=== PATIENT | female | born 1960 | race Caucasian/White ===

== ENCOUNTER 2024-08-21 15:12 | Outpatient (CLI) | payer MEDICARE, SELFPAY ==
--- NOTE | ~2024-08-21 | XR_ITS ---
EXAM/PROCEDURE: XR abdomen/kub 1V - 08/21/2024 15:30 CDT HISTORY: 64 years old Female with FLIP KIDNEY STONES. F/U COMPARISON: None available. TECHNIQUE: AP view(s) of the abdomen. FINDINGS: The bowel gas pattern is normal. There is no evidence for obstruction. Multiple radiopaque renal calc josie are seen in the left kidney. Probable calculi in the left kidney. No free intraperitoneal air is identified on this supine radiograph. The visualized soft tissue shadows are unremarkable. No gross bony abnormalities are seen. Dextroscoliosis. Visualized portions of lung bases are clear. IMPRESSION: Multiple radiopaque renal calculi are seen in the left kidney. Reviewed, dictated and finalized at location A.
--- OUTSIDE RECORDS SUMMARY | 2024-08-21 15:26 | XMS_ITS | Clinical Summary ---
Author Organization [facility] Address [address] [place] [address] Care Team Providers Care Carpenter Assembler Name Role Phone Megan Deras PIPE INSTALLER-POT LINING SUPERVISOR Primary Care Provider [phone]- [phone] Source Comments [facility],non-owned Affiliates and Associated Physician Practices is amultiple site organization consisting of ambulatory clinics and hospital sitesin [place], [place], [place] and [place]. This disclosure is being madepursuant to the Care Everywhere program and may not contain all information available regarding this patient. Last updated [email or web address] Social History Tobacco Use Types Packs/Day Years Used Date Smoking Tobacco: Never Assessed Comments Unknown Sex and Gender Information Value Date Recorded Sex Assigned at Not on file Legal Sex Female 11:09 AM CDT Gender Identity Not on file Sexual Orientation Not on file Plan of Treatment Health Maintenance Due Date Last Done Comments COLOGUARD (AGES 45-75) - COL ON CA SCREENING 1961 COLON MONITORING 1961 COLONOSCOPY - COLON CA SCREENING 1961 CT COLONOGRAPHY - COLON CA SCREENING 1961 Colorectal Cancer Screening 1961 FIT - COLON CA SCREENING 1961 FLEX SIG - COLON CA SCREENING 1961 LIPID TESTING 1961 MAMMOGRAM 1961 MEDICARE AWV 12 MONTHS 1961 HIV SCREENING 01/27/1976 HEPATITIS C SCREENING 01/22/1979 DTAP/TDAP/TD VACCINES (1 - Tdap) 01/27/1980 PAP SMEAR 1982 PNEUMOCOCCAL VACCINE 50+ (1 of 1 - PCV) 2011 ZOSTER VACCINE (1 of 2) 2011 COVID-19 VACCINE (1 - 2023-2 5 season) 2023 DEPRESSION SCREENING 02/14/2024 INFLUENZA VACCINE (#1) 2024 Respiratory Syncytial Virus (RSV) Vaccine Pt: or over 60 yrs (1 - 1-dose 75+ series) 01/27/2036 HEPATITIS B VACCINE Aged Out No longe r eligible based on patient's age to complete this topic HIB VACCINE Aged Out No longer eligi ble based on patient's age to complete this topic HPV VACCINE Aged Out No longer eligi ble based on patient's age to complete this topic MENINGOCOCCAL (Group B) VACC INE SHARED DECISION-MAKING Aged Out No longer eligibl e based on patient's age to complete this topic MENINGOCOCCAL GROUPS A/C/Y/W VACCINE Aged Out No longer eligible b ased on patient's age to complete this topic Insurance MEDICARE MEDICAID - OUT OF [facility] MEDIC[facility] Care Teams Carpenter Assembler Relationship Specialty Start Date End Date Megan Deras APRN-CNP PCP - General 06/01/18
--- OUTSIDE RECORDS SUMMARY | 2024-08-21 15:26 | XMS_ITS | Referral Summary ---
Author Organization [facility] Address [address] [place] [id number] Care Team Providers Care Telegraph Repeater Mechanic Name Role Phone Keily Luis NP Primary Care Provide r Allergies No known active allergies Medications ibuprofen (ADVIL) 100 mg tablet take 2 tablet by oral route every 4 - 6 hours as needed with food 0 0 6 Active Additional Information Patient taking differently:100 mgAs needed, Reported on 09/14/2022 multivitamin tabletIndicatio ns:Vitamin Deficiency Prevention Active venlafaxine XR (EFFEXOR-XR) 37.5 mg 24 hr capsule Take 1 capsule (37.5 mg total) by mouth daily 30 capsule 1 0 Active benzonatate (TESSALON) 100 mg capsule 3 Active lisinopriL (PRINIVIL,ZESTR IL) 20 mg tablet 3 Active metoprolol XL (TOPROL-XL) 50 mg extended release tablet 3 Active sertraline (ZOLOFT) 50 mg tablet Take 1 tablet (50 mg total) by mouth nightly 3 Active gabapentin (Neurontin) 100 mg capsule Take 1 capsule (100 mg total) by mouth 3 (three) times a day 90 capsule 3 3 Active fluticasone propionate (FLONASE) 50 mcg/actuation nasal spray Administer 1 spray into each nostril 2 (two) times a day 1 each 3 3 Active Active Problems Problem Noted Date Diagnosed Date Fatty liver disease, nonalcoholic 09/11/2019 Overview (09/11/2019): Had liver US at [place] 2018 Post menopausal syndrome 08/23/2019 Assessment & Plan (08/23/2019 5:00 PM CDT): Will try effexor xr 37.5mg for post menopausal symptoms. Will have her f/u in 1 month for recheck. Shortness of breath on exertion 08/22/2019 Centrilobular emphysema 08/22/2019 Assessment & Plan (08/23/2019 4:56 PM CDT): Seen on previous low dose CT scan. C/o of shortness of breath with exertion. Will start with PFT. Lipid screening 10/31/2017 Encounter for screening for lung cancer 07/27/19 Overview (08/22/2019): Smoked Started age 15 stopped 58 Anxiety 07/26/2017 Assessment & Plan (07/26/2017 3:48 PM CDT): Discussed starting a medication and pt is agreeable. Will start zoloft . Discussed starting dose and titration to full dose, possible SE and time frame for expected results. Call if any suicidal thoughts or questions concerning SE. Do not abruptly stop medication without calling office. Follow up in 3-4 weeks for recheck and continuation of medications. History of nonmelanoma skin cancer 09/13/2016 Hypertrophic scar 09/13/2016 Resolved Problems Problem Noted Date Diagnosed Date Resolved Date Elevated liver enzymes 12/19/201708/21 Multiple complaints 11/03/2017 08/22/19 Assessment & Plan (11/03/2017 6:36 PM CDT): Patient's speech pressured and fast at times. Multiple complaints of pain, vertigo that has been ongoing. Ingrown hair was resolving. Pt was concerned about ADD, fibromyalgia, RLS, itchy skin. Referred to pain management for possible fibromyalgia. Possible anxiety by office visit. Gave triamcinalone cream for eczema on left lower leg. Check lab work today. Vertigo 10/31/2017 08/22/2019 Assessment & Plan (11/03/2017 6:36 PM CDT): Meclizine for vertigo. Consider CT scan if not improved Visit for screening mammogram 10/31/2017 10/31/2017 Idiopathic peripheral neuropathy 08/25/2016 08/22/2019 Assessment & Plan (08/25/2016 3:42 PM CDT): Her EMG was negative, however, her symptoms are consistent with peripheral neuropathy. I am going to trial gabapentin. We discussed how to titrate this medication and it's usage. Myalgia 08/25/2016 08/22/2019 Assessment & Plan (08/25/2016 3:44 PM CDT): Will check vitamin D, magnesium and myriam and rheumatoid factor. Malignant neoplasm of thorax 05/13/2016 07/26/2017 Bilateral wrist pain 04/18/2016 018 Overview (07/08/2016): Bilateral wrist pain Pain of lumbar spine 02/22/2016 020 Overview (05/19/2016): Pain in lumbar spine Elbow pain 02/22/2016 08/22/2019 Overview (05/19/2016): Elbow pain Current smoker 01/25/2016 08/22/2019 Overview (05/19/2016): Current smoker Assessment & Plan (07/26/2017 3:47 PM CDT): qulifies for low dose CT screening. Order given. [facility] now does these screenings. Bilateral hip joint pain 01/25/2016 Overview (05/19/2016): Bilateral hip joint pain Gastroesophageal reflux dise ase without esophagitis 12/23/2014 08/22/2019 Actinic keratosis 03/22/2010 08/22/2019 Overview (08/22/2019): Note: Unchanged Immunizations Immunization Administration Dates Next Due Influenza, Quadrivalent, Split, Intramuscular Influenza, Quadrivalent, Spl it, Preservative Free, Intramuscular 12/13/2018 Influenza, Trivalent, IM (MDV) 12/18/2012 Moderna SARS-CoV-2 Monovalent Vaccination (12+ Y RS) 05/22/2020 Social History Tobacco Use Types Packs/Day Years Used Date Smoking Tobacco: Former Cigarettes 0.5 45 0 08/03/1975 - 05/06/2018 Smokeless Tobacco: Never Tobacco Cessation:Counseling Given: Not Answered PHQ-2 Answer Date Recorded PHQ-2 Total Score (If total score is 3 or more points, staff should administer the PHQ-9) 0 08/22/2019 Comments Unknown Sex and Gender Information Value Date Recorded Sex Assigned at Not on file Legal Sex Female 3:[address] SQL DEVELOPER Gender Identity Not on file Sexual Orientation Not on file Last Filed Vital Signs Vital Sign Reading Time Taken Comments Blood Pressure 134/84 09/14/2022 9:33 AM CDT Pulse 62 09/14/2022 9:33 AM CDT Temperature 36.7 C (98 F) 03/30/2021 11:[address] SQL DEVELOPER Respiratory Rate 20 03/30/2021 11:[address] SQL DEVELOPER Oxygen Saturation 95% 03/30/2021 11:[address] SQL DEVELOPER Inhaled Oxygen Concentration - - Weight 90.9 kg (200 lb 6.4 oz) 09/14/2022 9:33 A M CDT Height 161.3 cm (5' 3.5) 09/14/2022 9:33 AM CDT Body Mass Index 34.94 09/14/2022 9:33 AM CDT Plan of Treatment Not on file Procedures Procedure Name Priority Date/Time Associated Diagnosis Comments DIAGNOSTIC MAMMOGRAM BILATERAL W SCOTT W IMPLANTS Schedule Routine, Read Routine (OP Routine) 03/30/2021 10:[address] SQL DEVELOPER Abnormal mammogram HEPATITIS PANEL, ACUTE Routine 04/06/2018 2:[address] SQL DEVELOPER Elevated liver enzymes HM COLONOSCOPY Routine 07/05/2012 Encounter for screening for lung cancer from Last 3 Months or Most Recently Relevant to Health Maintenance Results * Diagnostic Mammogram Bilateral w Scott w Implants (03/30/2021 10:[address] SQL DEVELOPER) Anatomical Region Laterality Modality Breast Bilateral Mammography 03/30/2021 11:[address] SQL DEVELOPER Addenda Addendum by Shira Burris MD on 04/01/2021 10:[address] SQL DEVELOPER Comparison 09/18/2020, 03/12/2015, 06/04/2012 from [facility] FINDINGS: There is no change since previous examination. Bilateral stable axillary and intramammary lymph nodes are seen. IMPRESSION: BI-RADS Category 2, benign Recommendation Annual screening mammogram Electronically signed by: Shira Burris M.D. Impressions 03/30/2021 11:[address] SQL DEVELOPER BI-RADS category 0, incomplete needs previous examination for comparison Electronically signed by: Shira Burris M.D. Narrative 03/30/2021 11:[address] SQL DEVELOPER EXAM: DIAGNOSTIC MAMMOGRAM BILATERAL W SCOTT W IMPLANTS DATE: 03/30/2021 10:00 AM CLINICAL HISTORY: Bilateral augmentation mammoplasty 5-6 years ago TECHNIQUE: Bilateral full field 2 D and digital breast tomosynthesis[DBT] Diagnostic mammography was performed in the CC and MLO projections, both including and displacing the implants. CAD was utilized. Comparison. Previous examination at [facility], not available for comparison. Breast parenchymal composition. There are scattered areas of fibroglandular density. FINDINGS: There is no evidence of dominant mass, suspicious calcification or architectural distortion. Bilateral breast implant appears intact. Esther Dixon MD PhD IMG MAMMO PROCEDURES Edited Result - Final * Hepatitis panel, acute (04/06/2018 2:[address] SQL DEVELOPER) Hep A IgM Negative Negative [facility] ([facility]) Comment:Testing performed by : [facility], [address] [place] [address], [place]., [address] Hep B core IgM Negative Negative [facility] ([facility]) Comment:Testing performed by : [address] [place] [address] Hep C Ab Negative Negative [facility] ([facility]) Comment:Testing performed by : [address] [place] [address] HepBsAg Nonreactive Nonreactive [facility] ([facility]) Comment:Testing performed by : [address], [place]., [address] Blood specimen (specimen) 04/06/2018 2:[address] SQL DEVELOPER 04/08/2018 6:[address] SQL DEVELOPER Narrative [facility] ([facility]) - 04/08/2018 7:[address] SQL DEVELOPER Megan Deras NP LAB MICROBIOLOGY - GENERAL OR DERABLES Final Result [facility] ([facility]) [address] [facility] Department [place] [address] * COLONOSCOPY (07/05/2012) Colonoscopy Unknown Historical Provider HEALTH MAINTENANCE Final Result from Last 3 Months or Most Recently Relevant to Health Maintenance Insurance MEDICARE IDNV MEDICARE [place] MEDICARE IDPA Care Teams Telegraph Repeater Mechanic Relationship Specialty Start Date End Date Keily Luis NP [address] [place] [address] PCP - General Emergency Medicine 10/27/20
--- OUTSIDE RECORDS SUMMARY | 2024-08-21 15:26 | XMS_ITS | Encounter Summary ---
Author Organization [facility] Address [address] [place] [address] Care Team Providers Care Planning Lead Name Role Phone Megan Deras GREEN CHAIN OPERATOR-PEDIATRIC ONCOLOGY NURSE Primary Care Provider [phone]- [phone] Encounter Details Date Type Department Care Team (Late st Contact Info) Description 06/15/2022 Lab Requisition [facility] DermPath Lab [address] [facility] [place] [address] Martín Acosta Jr., MD [address] [place] [address] Social History Tobacco Use Types Packs/Day Years Used Date Smoking Tobacco: Never Assessed Comments Unknown Sex and Gender Information Value Date Recorded Sex Assigned at Not on file Legal Sex Female 11:09 AM CDT Gender Identity Not on file Sexual Orientation Not on file documented as of this encounter Plan of Treatment Not on file documented as of this encounter Procedures Procedure Name Priority Date/Time Associated Diagnosis Comments DERMATOPATHOLOGY Routine 06/14/2022 3:33 AM CDT documented in this encounter Results * DERMATOPATHOLOGY (06/14/2022 3:33 AM CDT) Case Report Dermatopathology Report Case: [id number] Authorizing Provider: Martín Acosta Jr., MD Collected: 06/14/2022 03:33 AM Ordering Location: [facility] DermPath Lab Received: 06/15/2022 02:05 PM Pathologist: Paula Overton MD Specimens: A) - Skin, left central zygoma B) - Skin, superior mid forehead C) - Skin, nasal dorsum D) - Skin, right clavicular skin 12:53 PM CDT DERMATOPATHOLOGY LABORATORY Final Diagnosis Specimen A. SKIN, left central zygoma: SEBORRHEIC KERATOSIS, IRRITATED AND INFLAMED (L82.0) Specimen B. 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 SKIN, nasal dorsum: SQUAMOUS CELL CARCINOMA IN SITU WITH ACANTHOLYTIC FEATURES (D04.39) (see microscopic description) Specimen D. SKIN, right clavicular skin: BASAL CELL CARCINOMA, NODULAR TYPE (C44.612) (see microscopic description) 3 12:53 PM CDT DERMATOPATHOLOGY LABORATORY at 1253 CDT Clinical History A: Pigmented Basal Cell Carcinoma vs. Pigmented Seborrheic Keratosis vs. Pigmented Squamous Cell Carcinoma B-C: Inflamed Seborrheic keratosis vs. Basal Cell Carcinoma vs. Verruca Vulgaris vs. Squamous Cell Carcinoma vs. Actinic Keratosis D: Basal Cell Carcinoma vs. Irritated Seborrheic Keratosis 12:53 PM CDT DERMATOPATHOLOGY LABORATORY Gross Description Specimen A: Received is one formalin filled container labeled with the patient's name and designated left central zygoma. The specimen consists of a shave biopsy measuring 5x4x1 mm. Jar 0. Specimen B: Received is one formalin filled container labeled with the patient's name and designated superior mid forehead. The specimen consists of a shave biopsy measuring 5x4x1 mm. Jar 0. Specimen C: Received is one formalin filled container labeled with the patient's name and designated nasal dorsum. The specimen consists of a shave biopsy measuring 3x3x1 mm. Jar 0. Specimen D: Received is one formalin filled container labeled with the patient's name and designated right clavicular skin. The specimen consists of a shave biopsy measuring 6x5x1 mm. Jar 0. 3 12:53 PM CDT DERMATOPATHOLOGY LABORATORY Microscopic Description Specimen A. SKIN, left central zygoma: Sections show acanthosis, papillomatosis, hyperkeratosis, and squamous eddies. There is a lymphohistiocytic infiltrate within the papillary dermis. Specimen B. SKIN, superior mid forehead: The epidermis shows parakeratosis, full thickness disorderly maturation of keratinocytes, mitoses at different levels, and dyskeratotic cells. Specimen C. SKIN, nasal dorsum: The epidermis shows parakeratosis, full thickness disorderly maturation of keratinocytes, mitoses at different levels, and dyskeratotic cells. In some foci, there is loss of cohesion between the neoplastic cells, as well as individual dyskeratotic cells that lack intercellular bridges. Adnexal extension of the lesion is seen. Specimen D. SKIN, right clavicular skin: Within the dermis there are aggregates of basaloid cells with a high nuclear to cytoplasmic ratio and peripheral palisading. Lesional cells are highlighted by BerEP4 immunostain. Additional deeper sections were obtained and reviewed. 12:53 PM CDT DERMATOPATHOLOGY LABORATORY Disclaimer An external and internal positive and negative controls are appropriate for the histochemical, immunohistochemical and immunofluorescence stain(s) in this case (if any), except where stated explicitly. The performance characteristics of the stain(s) cited in this report were developed and its performance characteristic determined by the Dermatopathology Laboratory at [facility], directed by Dr. Leonardo Cuenca. These tests need not be, and therefore are not, approved by the [place] Food and Drug Administration. The tests are used for clinical purposes. Billing Codes Specimen Charges Stain Charges 01374 90156 63265 57998 1 1 1 1 71918 1 3 12:53 PM CDT DERMATOPATHOLOGY LABORATORY Embedded Images 3 12:53 PM CDT DERMATOPATHOLOGY LABORATORY Pathology/Cytology TISSUE SPECIMEN FROM SKIN / Unknown 06/14/2022 3:33 AM CDT 06/15/2022 2:05 PM CDT Miscellaneous samples (specimen) TISSUE SPECIMEN FROM SKIN / Unknown 06/14/2022 3:33 AM CDT 06/15/2022 2:05 PM CDT Miscellaneous samples (specimen) TISSUE SPECIMEN FROM SKIN / Unknown 06/14/2022 3:33 AM CDT 06/15/2022 2:05 PM CDT Miscellaneous samples (specimen) TISSUE SPECIMEN FROM SKIN / Unknown 06/14/2022 3:33 AM CDT 06/15/2022 2:05 PM CDT us Martín Acosta Jr., MD LAB - PATHOLOGY/CYTOLOG Y ORDERABLES Final Result DERMATOPATHOLOGY LABORATORY [facility] - Department of Dermatology [facility] Specialized Medicine [address] [phone] documented in this encounter Visit Diagnoses Not on filedocumented in this encounter Care Teams Planning Lead Relationship Specialty Start Date End Date Megan Deras APRN-YADI PCP - General 06/01/18 documented as of this encounter
--- OUTSIDE RECORDS SUMMARY | 2024-08-21 15:26 | XMS_ITS | Encounter Summary ---
Author Organization [facility] Address [address] [facility] [address] [place] [address] Care Team Providers Care Deposition Reporter Name Role Phone Megan Deras JEWELRY SALES ASSOCIATE-EQUIPMENT MAINTENANCE TECHNICIAN Primary Care Provider [phone]- [phone] Encounter Details Date Type Department Care Team (Late st Contact Info) Description 12/14/2022 Lab Requisition [facility] - DermPath Lab [address] [facility] [place] [id number] Martín Acosta Jr., MD [address] [place] [address] Social History Tobacco Use Types Packs/Day Years [...] Priority Date/Time Associated Diagnosis Comments DERMATOPATHOLOGY Routine 12/13/2022 3:33 AM CDT documented in this encounter Results * DERMATOPATHOLOGY (12/13/2022 3:33 AM CDT) Case Report Dermatopathology Report Case: [id number] Authorizing Provider: Martín Acosta Jr., MD Collected: 12/13/2022 03:33 AM Ordering Location: [facility] DermPath Lab Received: 12/14/2022 12:11 PM Pathologist: Daphnie Overton MD Specimens: A) - Skin, right superior upper back B) - Skin, left anterior shoulder 2:22 PM CDT DERMATOPATHOLOGY LABORATORY Final Diagnosis Specimen A. SKIN, right superior upper back: SQUAMOUS CELL CARCINOMA IN SITU (WALKER'S DISEASE) (D04.5) Specimen B. SKIN, left anterior shoulder: SQUAMOUS CELL CARCINOMA IN SITU (WALKER'S DISEASE) (D04.62) 3 2:22 PM CDT DERMATOPATHOLOGY LABORATORY at 1422 CDT Clinical History A-B: Squamous Cell Carcinoma vs. Actinic Keratosis vs. Basal Cell Carcinoma vs. Irritated Seborrheic Keratosis 3 2:22 PM CDT DERMATOPATHOLOGY LABORATORY Gross Description Specimen A: Received is one formalin filled container labeled with the patient's name and designated right superior upper back. The specimen consists of a shave biopsy measuring 6x6x1 mm. Jar 0. Specimen B: Received is one formalin filled container labeled with the patient's name and designated left anterior shoulder. The specimen consists of a shave biopsy measuring 6x5x1 mm. Jar 0. 3 2:22 PM CDT DERMATOPATHOLOGY LABORATORY Microscopic Description Specimen A. SKIN, right superior upper back: The epidermis shows parakeratosis, full thickness disorderly maturation of keratinocytes, mitoses at different levels, and dyskeratotic cells. Specimen B. SKIN, left anterior shoulder: The epidermis shows parakeratosis, full thickness disorderly maturation of keratinocytes, mitoses at different levels, and dyskeratotic cells. 3 2:22 PM CDT DERMATOPATHOLOGY LABORATORY Disclaimer An external and internal positive and negative controls are appropriate for the histochemical, immunohistochemical and immunofluorescence stain(s) in this case (if any), except where stated explicitly. The performance characteristics of the stain(s) cited in this report were developed and its performance characteristic determined by the Dermatopathology Laboratory at [facility], directed by Dr. Leonardo Cuenca. These tests need not be, and therefore are not, approved by the [place] Food and Drug Administration. The tests are used for clinical purposes. Billing Codes Specimen Charges Stain Charges 49732 27644 1 1 3 2:22 PM CDT DERMATOPATHOLOGY LABORATORY Embedded Images 3 2:22 PM CDT DERMATOPATHOLOGY LABORATORY Pathology/Cytology TISSUE SPECIMEN FROM SKIN / Unknown 12/13/2022 3:33 AM CDT 12/14/2022 12:11 PM CDT Miscellaneous samples (specimen) TISSUE SPECIMEN FROM SKIN / Unknown 12/13/2022 3:33 AM CDT 12/14/2022 12:11 PM CDT us Martín Acosta Jr., MD LAB - PATHOLOGY/CYTOLOG Y ORDERABLES Final Result DERMATOPATHOLOGY LABORATORY [facility] - Department of Dermatology [facility] Medicine [address] [place] [address], [address] [phone] documented in this encounter Visit Diagnoses Not on filedocumented in this encounter Care Teams Deposition Reporter Relationship Specialty Start Date End Date Megan Deras APRN-YADI PCP - General 06/01/18 documented as of this encounter
--- OUTSIDE RECORDS SUMMARY | 2024-08-21 15:26 | XMS_ITS | Clinical Summary ---
Author Organization [facility] Address [address] [place] [phone] Care Team Providers Care Union Representative Name Role Phone Keily Luis NP Primary [...] 09/11/2019 Overview (09/11/2019): Had liver US at [facility] 2018 Post menopausal syndrome 08/23/2019 Assessment & [...] SARS-CoV-2 Monovalent Vaccination (12+ Y RS) 05/22/2020 Surgical History Surgery Date Site/Laterality Comments TUBAL LIGATION Tubes tied OTHER SURGICAL HISTORY Bilateral Breast Lift & Augmentation AUGMENTATION MAMMAPLASTY Medical History Medical History Date Comments Hx Other Medical Kidney stones Hx Other Medical Tubal ligation 05-30-15.; Comments: EMILY 2016 - Hx Other Medical Lift and augmen t breasts May 2015.; Comments: EMILY 2016 - Hx Other Medical Apparent posttr aumatic thoracolumbar dgenerative d; Comments: EMILY 05/23/2016 - Current smoker 01/25/2016 Current smoker Family History Medical History Relation Name Comments Lung cancer Father Cancer, lung; Pancreatic cancer Maternal Grandmother Breast cancer Neg Hx Endometrial cancer Neg Hx Ovarian cancer Neg Hx Thyroid cancer Neg Hx Relation Name Status Comments Father Maternal Grandmother Social History Tobacco Use Types Packs/Day Years [...] on file Legal Sex Female 3:00 AM RV SERVICE TECHNICIAN Gender Identity Not on file Sexual Orientation Not on file Obstetrics History Para Term AB IAB SAB Ectopic Multiple Livin g Live Births 3 3 3 Date Outcome GA Total Labor Labor/2nd/3rd Weight Sex Type Anes PTL Kailey A1 A5 Name Clin Term Term Term Last Filed Vital Signs Vital Sign Reading Time Taken Comments Blood Pressure 134/84 09/14/2022 9:33 AM CDT Pulse 62 09/14/2022 9:33 AM CDT Temperature 36.7 C (98 F) 03/30/2021 11:26 AM RV SERVICE TECHNICIAN Respiratory Rate 20 03/30/2021 11:26 AM RV SERVICE TECHNICIAN Oxygen Saturation 95% 03/30/2021 11:26 AM RV SERVICE TECHNICIAN Inhaled Oxygen Concentration - - Weight 90.9 kg (200 lb 6.4 oz) 09/14/2022 9:33 A M CDT Height 161.3 cm (5' 3.5) 09/14/2022 9:33 AM CDT Body Mass Index 34.94 09/14/2022 9:33 AM CDT Plan of Treatment Health Maintenance Due Date Last Done Comments Cervical Cancer Screening 1961 DTaP/Tdap/Td Vaccine (1 - Tdap) 01/27/1972 Hepatitis B Screening 1979 Regular Well Visit/Exam 18-64 1979 Pneumococcal vaccine <65 (1 of 2 - PCV) 01/27/1980 Lung Cancer Screening 2011 Zoster Vaccine (1 of 2) 2011 Depression Screening 08/21/2020 08/22/2019, 07/26/2017, 08/25/2016 Breast Cancer Screening-Mammogram 03/30/2022 022 Colon Cancer Screening-Colonoscopy 07/05/20222012 Covid-19 Vaccine (3 - 2023-2 5 season) 2023 05/22/2020, 04/17/2020 Influenza Vaccine (#1) 2024 9, 12/13/2018, 12/18/2012 Colon Cancer Screening-CT Colonography Discontinued 07/05/2012 Colon Cancer Screening-DNA Stool Discontinued 07/06/19 13 Colon Cancer Screening-FIT Discontinued 07/05/2012 Colon Cancer Screening-Sigmoidoscopy Discontinued 06/14 Hepatitis C Screening Completed 04/06/2018 Procedures Procedure Name Priority Date/Time Associated Diagnosis Comments DIAGNOSTIC MAMMOGRAM BILATERAL W SCOTT W IMPLANTS Schedule Routine, Read Routine (OP Routine) 03/30/2021 10:42 AM RV SERVICE TECHNICIAN Abnormal mammogram HEPATITIS PANEL, ACUTE Routine 04/06/2018 2:35 PM RV SERVICE TECHNICIAN Elevated liver enzymes HM COLONOSCOPY Routine 07/05/2012 Encounter for screening for lung cancer from Last 3 Months or Most Recently Relevant to Health Maintenance Results * Diagnostic Mammogram Bilateral w Scott w Implants (03/30/2021 10:42 AM RV SERVICE TECHNICIAN) Anatomical Region Laterality Modality Breast Bilateral Mammography 03/30/2021 11:0 0 AM RV SERVICE TECHNICIAN Addenda Addendum by Shira Burris MD on 04/01/2021 10:43 AM RV SERVICE TECHNICIAN Comparison 09/18/2020, 03/12/2015, 06/04/2012 from [facility] FINDINGS: There is no change since previous examination. Bilateral stable axillary and intramammary lymph nodes are seen. IMPRESSION: BI-RADS Category 2, benign Recommendation Annual screening mammogram Electronically signed by: Shira Burris M.D. Impressions 03/30/2021 11:00 AM RV SERVICE TECHNICIAN BI-RADS category 0, incomplete needs previous examination for comparison Electronically signed by: Shira Burris M.D. Narrative 03/30/2021 11:00 AM RV SERVICE TECHNICIAN EXAM: DIAGNOSTIC MAMMOGRAM BILATERAL W SCOTT W IMPLANTS DATE: 03/30/2021 10:00 AM CLINICAL HISTORY: Bilateral augmentation mammoplasty 5-6 years ago TECHNIQUE: Bilateral full field 2 D and digital breast tomosynthesis[DBT] Diagnostic mammography was performed in the CC and MLO projections, both including and displacing the implants. CAD was utilized. Comparison. Previous examination at [facility], not available for comparison. Breast parenchymal composition. There are scattered areas of fibroglandular density. FINDINGS: There is no evidence of dominant mass, suspicious calcification or architectural distortion. Bilateral breast implant appears intact. Esther Dixon MD PhD IMG MAMMO PROCEDURES Edited Result - Final * Hepatitis panel, acute (04/06/2018 2:35 PM RV SERVICE TECHNICIAN) Hep A IgM Negative Negative [facility] ([facility]) Comment:Testing performed by : [facility], [address] [place] [address]., [id number] Hep B core IgM Negative Negative [facility] ([facility]) Comment:Testing performed by : [facility], [address] [place] [address]., [id number] Hep C Ab Negative Negative [facility] ([facility]) Comment:Testing performed by : [facility], [address] [place] [address]., [id number] HepBsAg Nonreactive Nonreactive [facility] ([facility]) Comment:Testing performed by : [facility], [address] [place] [address]., [phone] Blood specimen (specimen) 04/06/2018 2:35 PM RV SERVICE TECHNICIAN 04/08/2018 6:52 PM RV SERVICE TECHNICIAN Narrative [facility] ([place]) - 04/08/2018 7:31 PM RV SERVICE TECHNICIAN Megan Deras NP LAB MICROBIOLOGY - GENERAL OR DERABLES Final Result [facility] ([place]) 1 [facility] Department of Laboratories [place] [id number] * COLONOSCOPY (07/05/2012) Colonoscopy Unknown Historical Provider MD HEALTH MAINTENANCE Final Result from Last 3 Months or Most Recently Relevant to Health Maintenance Insurance [facility] H[facility]/PPO Address: [address] [address] MEDICARE IDPA MEDICARE IDAK MEDICARE IDPA Care Teams Union Representative Relationship Specialty Start Date End Date Keily Luis NP [address] [place] [address] PCP - General Emergency Medicine 10/27/20
--- OUTSIDE RECORDS SUMMARY | 2024-08-21 15:26 | XMS_ITS | Clinical Summary ---
Author Organization [facility] Address [address] [place] [address] Phone Care Team Providers Care Signal Mechanic Name Role Phone Keily Luis APRN, CNP Unavailable Keily Luis APRN, CNP Primary Care P rokateder Gomez Dhillon MD Unavailable Allergies No known active allergies Medications alendronate (FOSAMAX) 70 MG Tablet 4 Active Wegovy 0.5 MG/0.5ML Solution Auto-injectorIn dications:Obesi ty (BMI 30.0-34.9) 0.5 mg by Subcutaneous route once a week. 2 mL 4 Active fluticasone (FLONASE) 50 MCG/ACT Suspension 1 [place] by Nasal route 2 times daily. Use in each nostril as directed. 1 g 1 5 Active Active Problems Problem Noted Date Diagnosed Date Fatty liver disease, nonalcoholic 09/11/2019 Overview (04/29/2020): Had liver US at [place] 2019 Centrilobular emphysema 08/22/2019 Overview (04/29/2020): Last Assessment & Plan: Seen on previous low dose CT scan. C/o of shortness of breath with exertion. Will start with PFT. Generalized anxiety disorder 12/23/2014 Encounters Date Type Department Care Team Description 07/18/2024 Patient Outreach [facility] [address] [place] [address] Keily Luis APRN, CNP 07/01/2024 Results Follow-Up [facility] [address] [place] [address] Dagmar Garcia APRN, FORENSIC PHOTOGRAPHER CT CHEST SCREENING WO 06/25/2024 1:00 PM CDT Ancillary Procedure [facility] [address] [place] [address] Dagmar Garcia APRN, YADI Personal history of smoking Discharge Disposition: Discharged to home or Selfcare 06/25/2024 Refill [facility] [address] [place] [address] Keily Luis APRN, FORENSIC PHOTOGRAPHER Medication Refill 06/24/2024 Travel from Last 3 Months Immunizations Immunization Administration Dates Next Due Covid-19, Mrna, Lnp-s, PF, 1 00 mcg/0.5 mL Dose (Moderna) 04/17/2020 Influenza, Seasonal, Injectable, Undefined 12/18 Family History Medical History Relation Name Comments No Known Problems Daughter 1 No Known Problems Daughter 2 No Known Problems Daughter 3 Alcohol Abuse Father Cancer Maternal Grandmother Pancrea tic No Known Problems Mother Anxiety disorder Sister 1 Diabetes Sister 1 Other-comment Sister 2 accident Anxiety disorder Sister 3 Relation Name Status Comments Daughter 1 Alive Daughter 2 Alive Daughter 3 Alive Father Maternal Grandfather Maternal Grandmother Mother Paternal Grandfather Paternal Grandmother Sister 1 Alive Sister 2 Sister 3 Alive Social History Tobacco Use Types Packs/Day Years Used Date Smoking Tobacco: Former Cigarettes 0.1 43 0 05/07/1975 - 2018 Smokeless Tobacco: Never Tobacco Cessation:Counseling Given: No Comments:Smoked on a social event Alcohol Use Standard Drinks/Week Comments Yes 0 (1 standard drink = 0.6 oz pur e alcohol) social Education Answer Date Recorded What is the highest level of school you have completed or the highest degree you have received? Professional school degree (e.g., , DDS, DVM, RD) 04/10/2022 Sexually Active Control Partners Comments Not Currently Surgical Male Comments No Sex and Gender Information Value Date Recorded Sex Assigned at Female 09/27/2022 10:41 AM CDT Legal Sex Female 7:46 PM CDT Gender Identity Female 09/27/2022 10:41 AM CDT Sexual Orientation Not on file Last Filed Vital Signs Vital Sign Reading Time Taken Comments Blood Pressure 118/64 10/09/2023 1:48 PM CDT Pulse 74 10/09/2023 1:48 PM CDT Temperature 36.6 C (97.8 F) 10/09/2023 1:48 PM CDT Respiratory Rate 18 10/09/2023 1:48 PM CDT Oxygen Saturation 98% 10/09/2023 1:48 PM CDT Inhaled Oxygen Concentration - - Weight 86.6 kg (191 lb) 10/09/2023 1:48 PM CDT Height 162.6 cm (5' 4) 08/04/2023 2:48 PM CDT Body Mass Index 32.79 08/04/2023 2:48 PM CDT Plan of Treatment Upcoming Encounters Date Type Department Care Team (Late st Contact Info) Description 08/29/2024 10:15 AM CDT Appointment [facility] Mammography [address] [place] [address] Keily Luis, LEAF SUCKER OPERATOR, FORENSIC PHOTOGRAPHER [address] [place] [address] Health Maintenance Due Date Last Done Comments Hepatitis C Virus (HCV) Screening 1961 TdaP Immunization 1961 Pneumococcal Immunization (5 0+ years) (1 of 2 - PCV) 01/27/1980 Pap Smear 1982 Cervical Cancer Screening (CCS) 1991 HPV/Cotest 1991 Cologuard 2006 Immunochemical Fecal Occult Blood 2006 Zoster Immunization (1 of 2) 2011 Respiratory Syncytial Virus (RSV) Immunization (Adult) (1 - Risk 60-74 years 1-dose series) 2021 Mammogram 03/30/2022 03/30/2021, 03/30/2021 SARS-COV-2 Immunization ( season) 2023 05/22/2020, 04/17/2020 Influenza Immunization (#1) 2024 12/18/2012 Colonoscopy 03/15/2033 03/15/2023, 07/05/2012 Colorectal Cancer Screening 03/15/2033 Hepatitis B Immunization Aged Out No longer eligible based on patient's age to complete this topic Human Papillomavirus (HPV) Immunization Aged Out No longer eligible b ased on patient's age to complete this topic Meningococcal Immunization (ACWY) Aged Out No longer eligible b ased on patient's age to complete this topic Rotavirus Immunization Aged Out No lo nger eligible based on patient's age to complete this topic Procedures Procedure Name Priority Date/Time Associated Diagnosis Comments CT CHEST SCREENING WO Routine 06/25/2024 1:07 PM CDT Personal history of smoking MAMMOGRAM BILATERAL GENERIC 03/30/2021 12:00 AM REED MAKER from Last 3 Months or Most Recently Relevant to Health Maintenance Results * CT CHEST SCREENING WO (06/25/2024 1:07 PM CDT) Anatomical Region Laterality Modality Chest N/A Computed Tomogra phy 06/28/2024 10:5 7 AM CDT Impressions 06/28/2024 11:00 AM CDT IMPRESSION: 1. Unchanged 5 mm subpleural right upper lobe nodule. No new pulmonary nodules. 2. Mild emphysema. Lung-RADS category 2: Benign appearance or behavior. Recommendation: Low dose Screening CT of chest in 12 months. Narrative 06/28/2024 11:00 AM CDT EXAM DESCRIPTION: CT CHEST SCREENING WO REASON FOR STUDY: Screening CT of the chest in a former smoker with a 40 pack year smoking history. Additional history: Status smoking 6 years prior. TECHNIQUE: Low dose CT scan of the chest was performed without intravenous contrast using helical scanning technique. The exam extends from the lung apices through the lung bases. Automatic exposure control was used as a dose optimization technique. NOTE: This study was performed for the specific purposes of lung cancer screening and is not an alternative to diagnostic chest CT. RADIATION DOSE: CT dose index volume (CTDIvol) = 2.54 mGy COMPARISON: CT lung screen 10/26/2022 FINDINGS: SMOKING RELATED LUNG DISEASE: Mild emphysema. LUNG NODULES: Unchanged 5 mm subpleural right upper lobe nodule on image 42. CORONARY ARTERY CALCIFICATION: Positive OTHER: There is no pleural effusion or pneumothorax. The central airways patent. Normal heart size without pericardial effusion. Thoracic aorta is normal in course with a small amount of calcified atherosclerotic plaque. There are no enlarged mediastinal or axillary lymph nodes. Visualized portions of the upper abdomen are unremarkable. There is no suspicious osseous lesion. There are bilateral breast implants. THIS IS AN ELECTRONICALLY VERIFIED FINAL REPORT 06/28/2024 10:57 AM - Electronically signed by Tomas Paz M.D. AM: AM Report ID: [id number] Reading Location: [place] [address] Procedure Note Tomas Paz MD - 06/28/2024 EXAM DESCRIPTION: CT CHEST SCREENING WO REASON FOR STUDY: Screening CT of the chest in a former smoker with a 40 pack year smoking history. Additional history: Status smoking 6 years prior. TECHNIQUE: Low dose CT scan of the chest was performed without intravenous contrast using helical scanning technique. The exam extends from the lung apices through the lung bases. Automatic exposure control was used as a dose optimization technique. NOTE: This study was performed for the specific purposes of lung cancer screening and is not an alternative to diagnostic chest CT. RADIATION DOSE: CT dose index volume (CTDIvol) = 2.54 mGy COMPARISON: CT lung screen 10/26/2022 FINDINGS: SMOKING RELATED LUNG DISEASE: Mild emphysema. LUNG NODULES: Unchanged 5 mm subpleural right upper lobe nodule on image 42. CORONARY ARTERY CALCIFICATION: Positive OTHER: There is no pleural effusion or pneumothorax. The central airways patent. Normal heart size without pericardial effusion. Thoracic aorta is normal in course with a small amount of calcified atherosclerotic plaque. There are no enlarged mediastinal or axillary lymph nodes. Visualized portions of the upper abdomen are unremarkable. There is no suspicious osseous lesion. There are bilateral breast implants. THIS IS AN ELECTRONICALLY VERIFIED FINAL REPORT 06/28/2024 10:57 AM - Electronically signed by Tomas Paz M.D. AM: AM Report ID: [id number] Reading Location: [id number] IMPRESSION: 1. Unchanged 5 mm subpleural right upper lobe nodule. No new pulmonary nodules. 2. Mild emphysema. Lung-RADS category 2: Benign appearance or behavior. Recommendation: Low dose Screening CT of chest in 12 months. us Dagmar Garcia APRN, CNP IMG CT ORDERABLES Deepika everett Result * MAMMOGRAM BILATERAL MISCELLANEOUS (03/30/2021 12:00 AM REED MAKER) 03/30/2021 us Not On File Provider IMG MAMMO ORDERABLES Final Result SCAN from Last 3 Months or Most Recently Relevant to Health Maintenance Insurance MEDICARE [employer] [facility] [place] [id number] [facility] [employer] machine stitcher Care Teams Signal Mechanic Relationship Specialty Start Date End Date Keily Luis APRN, FORENSIC PHOTOGRAPHER [address] [place] [address] PCP - General Advanced Practice Nurse 04/29/20 Keily Luis APRN, FORENSIC PHOTOGRAPHER [address] [place] [address] Nurse Practitioner Advanced Practice Nurse 04/27/20 Gomez Dhillon MD [address] [address] Consulting Physician Colon and Rectal Surgery 05/27/22
--- OUTSIDE RECORDS SUMMARY | 2024-08-21 15:26 | XMS_ITS | Encounter Summary ---
Author Organization [facility] Address [address] [place] [address] Care Team Providers Care Skidway Man Name Role Phone Megan Deras AMBULANCE DISPATCHER-RARE/ENDANGERED SPECIES SPECIALIST Primary Care Provider [phone] Encounter Details Date Type Department Care Team (Late st Contact Info) Description 07/27/2022 Lab Requisition [facility] - DermPath Lab [address] [place] [id number] Martín Acosta Jr., MD [address] [facility] [place] [address] Social History Tobacco Use Types Packs/Day Years [...] Priority Date/Time Associated Diagnosis Comments DERMATOPATHOLOGY Routine 07/26/2022 12:0 0 AM CDT documented in this encounter Results * DERMATOPATHOLOGY (07/26/2022 12:00 AM CDT) Case Report Dermatopathology Report Case: [id number] Authorizing Provider: Martín Acosta Jr., MD Collected: 07/26/2022 12:00 AM Ordering Location: [facility] DermPath Lab Received: 07/27/2022 01:19 PM Pathologist: Elvi Cuenca MD Specimen: Skin, right inferior lateral neck 3 4:36 PM CDT DERMATOPATHOLOGY LABORATORY Final Diagnosis Specimen A. SKIN, right inferior lateral neck: DERMAL SCAR RESIDUAL BASAL CELL CARCINOMA NOT IDENTIFIED (L90.5) 3 4:36 PM CDT DERMATOPATHOLOGY LABORATORY at 1636 CDT Clinical History Basal Cell Carcinoma Check margin 3 4:36 PM CDT DERMATOPATHOLOGY LABORATORY Gross Description Specimen A: Received is one formalin filled container labeled with the patient's name and designated right inferior lateral neck.The specimen consists of an ellipse measuring 12x9x3 mm and is oriented with the suture/notch at the 12 o'clock position labeled on the requisition as superior. The 12 to 6 o'clock margin is inked green. The 6 o'clock to 12 o'clock margin is inked black. The 12 o'clock tip is submitted in cassette 1. The 6 o'clock tip is submitted in cassette 2. The remainder of the ellipse is serially sectioned and submitted in cassettes 3-4. Jar 0. 3 4:36 PM CDT DERMATOPATHOLOGY LABORATORY Microscopic Description Specimen A. SKIN, right inferior lateral neck: There are fibroblasts and collagen bundles oriented parallel to the skin surface. There are elongated blood vessels, some of which are oriented perpendicular to the skin surface. No basal cell carcinoma is identified. 3 4:36 PM CDT DERMATOPATHOLOGY LABORATORY Disclaimer An external and internal positive and negative controls are appropriate for the histochemical, immunohistochemical and immunofluorescence stain(s) in this case (if any), except where stated explicitly. The performance characteristics of the stain(s) cited in this report were developed and its performance characteristic determined by the Dermatopathology Laboratory at [facility], directed by Dr. Leonardo Cuenca. These tests need not be, and therefore are not, approved by the [place] Food and Drug Administration. The tests are used for clinical purposes. Billing Codes Specimen Charges Stain Charges 34465 1 3 4:36 PM CDT DERMATOPATHOLOGY LABORATORY Embedded Images 3 4:36 PM CDT DERMATOPATHOLOGY LABORATORY Pathology/Cytolog y TISSUE SPECIMEN FROM SKIN / Unknown 07/26/2022 07/27/2022 1:19 PM CDT us Martín Acosta Jr., MD LAB - PATHOLOGY/CYTOLOG Y ORDERABLES Final Result DERMATOPATHOLOGY LABORATORY [facility] - Department of Dermatology [facility] Specialized Medicine [address] [place] [address], [address] [phone] documented in this encounter Visit Diagnoses Not on filedocumented in this encounter Care Teams Skidway Man Relationship Specialty Start Date End Date Megan Deras APRN-CNP PCP - General 06/01/18 documented as of this encounter
--- OUTSIDE RECORDS SUMMARY | 2024-08-21 15:27 | XMS_ITS | Encounter Summary ---
Author Organization [facility] Address [address] [facility] [place] [address] Phone Care Team Providers Care Manager Urology Name Role Phone Keily Luis APRN, CNP Unavailable Keily Luis APRN, CNP Primary Care P rovider Gomez Dhillon MD Unavailable Encounter Details Date Type Department Care Team (Late st Contact Info) Description 07/01/2024 Results Follow-Up [facility] Oncologists [address] [place] [address] Dagmar Garcia APRN, GEOMAGNETIST [address] [place] [address] CT CHEST SCREENING WO Social History Tobacco Use Types Packs/Day Years Used Date Smoking Tobacco: Former Cigarettes 0.1 43 0 05/07/1975 - 2018 Smokeless Tobacco: Never Comments:Smoked on a social event Alcohol Use [...] AM CDT Sexual Orientation Not on file documented as of this encounter Plan of Treatment Upcoming Encounters Date Type Department Care Team (Late st Contact Info) Description 08/29/2024 10:15 AM CDT Appointment [facility] Mammography [address] [place] [address] Keily Luis APRN, CNP [address] [place] [address] documented as of this encounter Visit Diagnoses Not on filedocumented in this encounter Additional Health Concerns Assessment Noted Time PHQ-9 Depression Total Score: 0 04/30/19 21 10:00 AM CDT documented as of this encounter Care Teams Manager Urology Relationship Specialty Start Date End Date Keily Luis APRN, CNP [address] [place] [address] PCP - General Advanced Practice Nurse 04/29/20 Keily Luis APRN, CNP [address] [place] [address] Nurse Practitioner Advanced Practice Nurse 04/27/20 Gomez Dhillon MD [address] [address] Consulting Physician Colon and Rectal Surgery 05/27/22 documented as of this encounter
== END 2024-08-21 15:13 | disposition home or self-care (01) ==
PROVIDERS: Visit Provider Urology
DX: N20.0 Calculus of kidney (principal)
CPT/HCPCS: 74018